=== PATIENT | male | born 1955 | race Caucasian/White ===

== ENCOUNTER 2023-02-25 05:06 | Inpatient (IN) | payer BC, OTHER ==
[~2023-02-25] VITALS: Ht 160 cm; Wt 61.2 kg
[2023-02-25] MEDS ORDERED: IV NORMAL SALINE 1000 ML BAG IV ONE (05:15)
[2023-02-25] MEDS ORDERED: ONDANSETRON 4 MG/2 ML VIAL IV ONE (05:15)
[2023-02-25] MEDS ORDERED: ONDANSETRON 4 MG/2 ML VIAL ONE (05:16)
[2023-02-25] MEDS ORDERED: AMLO2.5T4 PO (05:17)
[2023-02-25] MEDS ORDERED: ALPR0.255 PO (05:17)
[2023-02-25] MEDS ORDERED: LISI2.5T14 PO (05:17)
[2023-02-25] MEDS ORDERED: ATOR10TA PO (05:17)
[2023-02-25] MEDS ORDERED: SILD50TA PO (05:17)
[2023-02-25] MEDS ORDERED: TAMS-3 PO ×2 (05:17→06:31)
[2023-02-25 05:46] LABS: BASOPHILS % (AUTO) 0.5 % (0.0-2.0); EOSINOPHILS # (AUTO) 0.3 K/uL (0.0-0.7); EOSINOPHILS % (AUTO) 5.5 % (0.0-7.0); HEMATOCRIT 35.3 % (36.7-47.1); HEMOGLOBIN 11.8 g/dL (12.5-16.3); LYMPHOCYTES # (AUTO) 1.1 K/uL (0.8-4.8); LYMPHOCYTES % (AUTO) 20.3 % (20.5-51.5); MEAN CORPUSCULAR HEMOGLOBIN 30.8 uug (23.8-33.4); MEAN CORPUSCULAR HGB CONC 33 g/dL (32.5-36.3); MEAN CORPUSCULAR VOLUME 92.4 fL (73.0-96.2); MONOCYTES # (AUTO) 0.5 K/uL (0.1-1.30); MONOCYTES % (AUTO) 9.5 % (0.0-11.0); NEUTROPHILS # (AUTO) 3.5 K/uL (1.8-8.9); NEUTROPHILS % (AUTO) 64.2 % (38.5-71.5); PLATELET COUNT (AUTO) 259 K/uL (152-348); RED BLOOD CELL COUNT(AUTO) 3.82 MIL/uL (4.06-5.63); WHITE BLOOD COUNT (AUTO) 5.5 K/uL (3.6-10.2)
[2023-02-25 05:50] LABS: DIFFERENTIAL COMMENT 1
[2023-02-25 05:59] LABS: CALCIUM 8.6 mg/dL (8.5-10.1); CARBON DIOXIDE 24 mmol/L (21-32); CHLORIDE 99 mmol/L (98-107); CREATININE 0.9 mg/dL (0.6-1.3); GLUCOSE 136 mg/dL (74-106); POTASSIUM 3.6 mmol/L (3.5-5.1); SODIUM SERUM 132 mmol/L (136-145); UREA NITROGEN, BLOOD 11 mg/dL (7-18)
[2023-02-25 06:07] LABS: ALANINE AMINOTRANSFERASE 19 U/L (16-63); ALBUMIN 3.6 g/dL (3.4-5.0); ALKALINE PHOSPHATASE 64 U/L (50-136); ASPARTATE AMINOTRANSFERASE 17 U/L (15-37); BILIRUBIN,DIRECT 0.2 mg/dL (0.0-0.2); BILIRUBIN,TOTAL 0.6 mg/dL (0.2-1.0); TOTAL PROTEIN, SERUM 6.9 g/dL (6.4-8.2)
[2023-02-25] MEDS ORDERED: SILD100T PO (06:31)
[2023-02-25] MEDS ORDERED: LISI40TA13 PO (06:31)
[2023-02-25] MEDS ORDERED: ALPR0.5T8 PO (06:31)
[2023-02-25] MEDS ORDERED: AMLO10TA59 PO (06:31)
[2023-02-25] MEDS ORDERED: ATOR40TA PO (06:31)
[2023-02-25 08:00] VITALS: O2SAT 98
[2023-02-25] MEDS ORDERED: REMEDY ESSENTIAL ZINC PASTE 113 GM TP PRN (08:30)
[2023-02-25] MEDS ORDERED: ACETAMINOPHEN 325 MG TABLET PO PRN (08:30)
[2023-02-25] MEDS ORDERED: ONDANSETRON 4 MG/2 ML VIAL IV PRN (08:30)
[2023-02-25] MEDS: TAMSULOSIN HCL 0.4 MG CAP.SR.24H PO SCH ×2 (09:00→09:54)
[2023-02-25] MEDS ORDERED: PANTOPRAZOLE SODIUM 40 MG TABLET.DR PO ONE (09:53)
[2023-02-25] MEDS ORDERED: TAMSULOSIN HCL 0.4 MG CAP.SR.24H ONE (09:54)
[2023-02-26] MEDS ORDERED: PANTOPRAZOLE SODIUM 40 MG TABLET.DR PO SCH (07:00)
== END 2023-02-25 13:04 | disposition home or self-care (01) | DRG 74 ==
LOC: ER 05:08 → TRANSITION 09:17
PROVIDERS: ADMIT Nurse Practitioner Family; ATTEND Nurse Practitioner Family
DX: G90.8 Other disorders of autonomic nervous system (principal); E87.1 Hypo-osmolality and hyponatremia; I34.1 Nonrheumatic mitral (valve) prolapse; R00.0 Tachycardia, unspecified; N40.0 Benign prostatic hyperplasia without lower urinary tract symptoms; I10 Essential (primary) hypertension; D64.9 Anemia, unspecified; Z79.899 Other long term (current) drug therapy; N52.9 Male erectile dysfunction, unspecified; E78.5 Hyperlipidemia, unspecified; T44.6X5A Adverse effect of alpha-adrenoreceptor antagonists, initial encounter; T46.7X5A Adverse effect of peripheral vasodilators, initial encounter; Y92.012 Bathroom of single-family (private) house as the place of occurrence of the external cause; S00.81XA Abrasion of other part of head, initial encounter; W18.39XA Other fall on same level, initial encounter; I25.10 Atherosclerotic heart disease of native coronary artery without angina pectoris; E78.00 Pure hypercholesterolemia, unspecified
CPT/HCPCS: 36415; 70450; 71045; 84484; 85025; 93005; 93307; G0378; J2405; J7040